=== PATIENT | male | born 1995 | race Caucasian/White ===

== ENCOUNTER 2016-12-28 19:44 | Emergency (ER) | payer BC, MEDICAID ==
[2016-12-28] MEDS ORDERED: Sulfamethox/Trimethoprim DS 800/160* TAB PO ONE (21:30)
[2016-12-28] MEDS ORDERED: Mupirocin 2% OINT* TUBE TOPICAL ONE (21:31)
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
[2016-12-28 21:43] VITALS: BP 118/90
== END 2016-12-28 21:54 | disposition home or self-care (01) ==
LOC: UCEAST 19:44
DX: L08.9 Local infection of the skin and subcutaneous tissue, unspecified (principal); F17.210 Nicotine dependence, cigarettes, uncomplicated
CPT/HCPCS: 87070; 87205; 99212; G0463

== ENCOUNTER 2017-08-20 18:40 | Emergency (ER) | payer BC, MEDICAID ==
[2017-08-20 18:50] VITALS: BP 137/78
--- NOTE | 2017-08-20 20:12 | RAD ---
INDICATION: Right knee injury COMPARISON: None TECHNIQUE: AP, lateral, tunnel, and sunrise views were obtained. FINDINGS: The bony structures, joint spaces, and soft tissues are normal for age. IMPRESSION: NEGATIVE EXAMINATION
--- NOTE | 2017-08-20 20:13 | RAD ---
INDICATION: Back injury COMPARISON: None TECHNIQUE: Routine PA, lateral, and oblique imaging was performed . FINDINGS: Bones: There are no acute bony findings. There are arthritic changes with disc space narrowing and bony spur formation about T11-T12. There is mild narrowing about L5-S1. 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 Alignment: Normal Disc spaces: The remaining disc spaces are well-maintained Soft tissues: There are no soft tissue abnormalities. IMPRESSION: MINOR DEGENERATIVE CHANGES. NO ACUTE FINDINGS
--- NOTE | 2017-08-20 20:19 | UC ---
Luca Latham Gabriel, scribed for Shane Sosa MD on 08/20/17 at 1921 . Back Pain HPI - HPI Summary HPI Summary: This patient is a 22 year old M presenting to [facility] s/p fall since 173. The patient rates the pain 5/10 in severity. Symptoms aggravated by movement and palpation. Patient reports right knee pain and lower back pain. Patient reports he was at work when slipped coming down a hill due to mud. He believes he twisted his knee attempting to catch himself. - History of Current Complaint Chief Complaint: UCLowerExtremity Stated Complaint: KNEE INJURY Time Seen by Provider: 08/20/17 19:15 Hx Obtained From: Patient Onset/Duration: Lasting Hours, Still Present Timing: Constant Severity Initially: Moderate Severity Currently: Moderate Pain Intensity: 5 Pain Scale Used: 0-10 Numeric Associated Signs And Symptoms: Positive: Other - knee pain - Allergies/Home Medications Allergies/Adverse Reactions: Allergies Allergy/AdvReac Type Severity Reaction Status Date / Time No Known Allergies Allergy Verified 08/20/17 18:50 PMH/Surg Hx/FS Hx/Imm Hx Previously Healthy: Yes Other History Of: Negative For: HIV, Hepatitis B, Hepatitis C, Anticoagulant Therapy - Surgical History Surgical History: Yes Surgery Procedure, Year, and Place: pilonidal cyst removed, carpal tunnel release right hand - Family History Known Family History: Positive: Unknown - pt adopted - Social History Occupation: Employed Full-time Alcohol Use: Occasionally Substance Use Type: None Substance Use Comment - Amount & Last Used: COUPLE TIMES WEEK Smoking Status (MU): Current Every Day Smoker Type: Cigarettes Amount Used/How Often: 1/2 ppd Length of Time of Smoking/Using Tobacco: 3 year Have You Smoked in the Last Year: Yes Household Exposure Type: Cigarettes - Immunization History Most Recent Influenza Vaccination: 1474-8642 season Most Recent Tetanus Shot: unk Vaccination Up to Date: Yes Review of Systems Constitutional: Negative - fever Musculoskeletal: Other: - right knee pain and lower back pain All Other Systems Reviewed And Are Negative: Yes Physical Exam Triage Information Reviewed: Yes Appearance: Well-Appearing, No Pain Distress Vital Signs: Initial Vital Signs Temp 97.9 F 08/20/17 18:46 Pulse 130 08/20/17 18:46 Resp 16 08/20/17 18:46 BP 137/78 08/20/17 18:46 Pulse Ox 97 08/20/17 18:46 Vital Signs Reviewed: Yes Eyes: Positive: Conjunctiva Clear ENT: Positive: Normal ENT inspection Neck: Positive: Supple, Nontender. Negative: Tenderness @ Respiratory: Positive: Chest non-tender, Lungs clear, Normal breath sounds, No respiratory distress Cardiovascular: Positive: RRR, No Murmur Abdomen Description: Positive: Nontender Musculoskeletal: Positive: Other: - some tender ness over the upper lumbar spine , and tenderness over the right patella but no effusion, bruise or redness. Neurological: Positive: Alert, Muscle Tone Normal Psychological: Positive: Age Appropriate Behavior Skin Exam: Normal Diagnostics - Radiology right knee Xray Radiology Interpretation Completed By: Radiologist - NEGATIVE EXAMINATION ED physician has reviewed this radiology report. L-spine Xray Radiology Interpretation Completed By: Radiologist - MINOR DEGENERATIVE CHANGES. NO ACUTE FINDINGS ED physician has reviewed this radiology report. Back Pain Course/Dx - Course Course Of Treatment: 22 yr old with contusion to back and sprain right knee. Plan dc home, motrin, fu with ortho as needed, and pmd - Differential Dx/Diagnosis Provider Diagnoses: lumbar contusion. knee sprain Discharge - Discharge Plan Condition: Good Disposition: HOME Prescriptions: Ibuprofen TAB* [Motrin TAB* 600 MG] 600 mg PO Q6H PRN #20 tab PRN Reason: Pain Patient Education Materials: Knee Sprain (ED), Low Back Strain (ED) Referrals: Nate Calle MD [Primary Care Provider] - The documentation as recorded by the Luca mosley Gabriel accurately reflects the service I personally performed and the decisions made by , Shane Sosa MD.
== END 2017-08-20 20:29 | disposition home or self-care (01) ==
LOC: UCEAST 18:40
DX: S30.0XXA Contusion of lower back and pelvis, initial encounter (principal); S83.91XA Sprain of unspecified site of right knee, initial encounter; W01.0XXA Fall on same level from slipping, tripping and stumbling without subsequent striking against object, initial encounter; Y92.9 Unspecified place or not applicable; Z87.891 Personal history of nicotine dependence
CPT/HCPCS: 72110; 99212; G0463

== ENCOUNTER 2018-03-25 11:17 | Emergency (ER) | payer BC, MEDICAID ==
[2018-03-25 11:25] VITALS: BP 132/86
--- NOTE | 2018-03-25 11:33 | UC ---
Hand/Wrist HPI - HPI Summary HPI Summary: punched a door with his right hand about 6 hour ago - History Of Current Complaint Chief Complaint: UCUpperExtremity Stated Complaint: R HAND INJURY Time Seen by Provider: 03/25/18 11:28 Hx Obtained From: Patient ?: No Mechanism Of Injury: punched a door Onset/Duration: Gradual Onset Pain Intensity: 6 Pain Scale Used: 0-10 Numeric Character Of Pain: Aching, Throbbing Aggravating Factor(s): Movement Alleviating Factor(s): Nothing Associated Signs And Symptoms: Positive: Swelling - minimal Related History: Dominant Hand Right - Allergies/Home Medications Allergies/Adverse Reactions: Allergies Allergy/AdvReac Type Severity Reaction Status Date / Time No Known Allergies Allergy Verified 03/25/18 11:26 PMH/Surg Hx/FS Hx/Imm Hx Previously Healthy: Yes Other History Of: Negative For: HIV, Hepatitis B, Hepatitis C, Anticoagulant Therapy - Surgical History Surgical History: Yes Surgery Procedure, Year, and Place: pilonidal cyst removed, carpal tunnel release right hand - Family History Known Family History: Positive: None, Unknown - pt adopted - Social History Occupation: Employed Full-time Lives: With Family Alcohol Use: Occasionally Substance Use Type: None Substance Use Comment - Amount & Last Used: COUPLE TIMES WEEK Smoking Status (MU): Current Every Day Smoker Type: Cigarettes Amount Used/How Often: 1/2 ppd Length of Time of Smoking/Using Tobacco: 3 year Have You Smoked in the Last Year: Yes Household Exposure Type: Cigarettes - Immunization History Most Recent Influenza Vaccination: 5399-5423 season Most Recent Tetanus Shot: unk Vaccination Up to Date: Yes Review of Systems Constitutional: Negative Skin: Negative Eyes: Negative ENT: Negative Respiratory: Negative Cardiovascular: Negative Gastrointestinal: Negative Genitourinary: Negative Motor: Negative Neurovascular: Negative Musculoskeletal: Arthralgia - right hand/5th mc and finger Neurological: Negative Psychological: Negative Is Patient Immunocompromised?: No All Other Systems Reviewed And Are Negative: Yes Physical Exam Triage Information Reviewed: Yes Appearance: Well-Appearing, No Pain Distress, Well-Nourished Vital Signs: Initial Vital Signs Temp 98 F 03/25/18 11:23 Pulse 91 03/25/18 11:23 Resp 16 03/25/18 11:23 BP 132/86 03/25/18 11:23 Pulse Ox 100 03/25/18 11:23 Vital Signs Reviewed: Yes Eye Exam: Normal Eyes: Positive: Conjunctiva Clear ENT Exam: Normal ENT: Positive: Normal ENT inspection, Hearing grossly normal. Negative: Trismus , Muffled voice, Hoarse voice Dental Exam: Normal Neck exam: Normal Neck: Positive: Supple, Nontender, No Lymphadenopathy Respiratory Exam: Normal Respiratory: Positive: Chest non-tender, No respiratory distress, No accessory muscle use Cardiovascular Exam: Normal Cardiovascular: Positive: RRR, Pulses Normal, Brisk Capillary Refill Musculoskeletal Exam: Normal Musculoskeletal: Positive: Strength Intact, ROM Intact, Edema @ - slight ulnar ascpect of right hand Neurological Exam: Normal Neurological: Positive: Alert Psychological Exam: Normal Skin Exam: Normal Diagnostics - Radiology No standard instances Xray Interpretation: No Acute Changes Radiology Interpretation Completed By: ED Physician, Radiologist - Patient Name : JET HIGGINS Medical Record#: [id number] Ordering Physician: Marita Abreu NP Acct.#: [id number] : 1995 Age: 22 Sex: M Location: [facility] Exam Date: 03/25/18 1135 ADM Status: REG ER Order Information: HAND - RIGHT MINIMUM 3 VIEWS Accession Number: [id number] CPT: 14260 INDICATION: Fifth metacarpal region pain following punching injury. COMPARISON: No relevant prior exams available on the [facility] PACS for comparison. TECHNIQUE: AP, lateral, and oblique views RIGHT hand. REPORT AND IMPRESSION: #. Negative for fracture or malalignment. #. Soft tissue swelling most prominent over the dorsum at the level of the wrist and metacarpals. <Electronically signed by Shane Phillips MD in OV> 03/25/18 1201 Dictated By: Shane Phillips MD Dictated Date/Time: 03/25 1201 Transcribed Date/Time: 03/25/18 1200 Copy to: CC:Marita Abreu NP ; Nate Calle MD; Zoran Mckeon MD Imaging - [facility] Imaging [facility] [address] [address] ph ) ph ([phone]) ph ([phone]) This report is only to be considered final once signed by the Provider(s) as displayed in the "<Electronically Signed by >" field (s). Absence of a signature indicates the report is in a draft status and still needs to be finalized. In the event this document was created by someone other than the signing Provider, the individual initiating the document will be listed in the "Entered by:" or "Dictated by:" rajput. 1 of 1 Hand/Wrist Course/Dx - Course Course Of Treatment: alexis wrap, rice, ibuprofen follow with pcp prn - Differential Dx/Diagnosis Provider Diagnoses: right hand contusion Discharge - Sign-Out/Discharge Documenting (check all that apply): Patient Departure - Discharge Plan Condition: Stable Disposition: HOME Prescriptions: Ibuprofen TAB* [Motrin TAB* 600 MG] 600 mg PO Q6H PRN #30 tab PRN Reason: pain Patient Education Materials: Contusion in Adults (ED), R.I.C.E. Treatment (ED) Referrals: Nate Calle MD [Primary Care Provider] - If Needed - Billing Disposition and Condition Condition: STABLE Disposition: Home
--- NOTE | 2018-03-25 12:05 | RAD ---
INDICATION: Fifth metacarpal region pain following punching injury. COMPARISON: No relevant prior exams available on the [facility] [place] for [place]. TECHNIQUE: AP, lateral, and oblique views RIGHT hand. REPORT AND IMPRESSION: #. Negative for fracture or malalignment. #. Soft tissue swelling most prominent over the dorsum at the level of the wrist and metacarpals.
== END 2018-03-25 12:24 | disposition home or self-care (01) ==
LOC: UCEAST 11:17
DX: S60.221A Contusion of right hand, initial encounter (principal); W22.8XXA Striking against or struck by other objects, initial encounter; Y93.9 Activity, unspecified; Y92.9 Unspecified place or not applicable; F17.210 Nicotine dependence, cigarettes, uncomplicated
CPT/HCPCS: 99211; G0463